=== PATIENT | female | born 1965 | race Two or more races ===

== ENCOUNTER 2024-09-03 14:01 | Emergency (ER) | payer OTHER, SELFPAY ==
[2024-09-03 14:06] VITALS: BMI 21.1
[2024-09-03 14:39] VITALS: BP 126/87; PULSE 85; RESP 20; TEMP 37.1; O2SAT 97
--- NOTE | 2024-09-03 14:51 | XR_ITS ---
Examination: CT abdomen and pelvis without contrast. Coronal 3-D reconstructions. Sagittal 2-D reconstructions. Date and time of exam: September 03, 2024 1502 hrs. Indications: Abdominal pain 18 days getting worse CTDI: vol (mGy): 01/20/2022 DLP: (mGycm): 287 Technique: Axial images of the abdomen have been obtained, 3 mm slice thickness Intravenous contrast material has not been administered. Low dose protocols were performed. One or more of the following dose reduction techniques were used; automated exposure control, adjustment of the mA and/or KV according to patient size, use of iterative reconstruction technique. Findings: No focal liver or splenic lesions Contracted gallbladder No pancreatic mass or peripancreatic edema No renal or ureteral calculi, no hydronephrosis Aorta normal size Normal appendix No bowel obstruction No diverticulitis Marked enlargement fundus of uterus with calcified 6.4 cm uterine area of likely fibroid degeneration Urinary bladder intact Advanced degenerative disc disease L5-S1 Impression: No renal or ureteral calculi, no hydronephrosis Normal appendix No bowel obstruction Marked enlargement fundus of uterus with large calcified uterine fundal mass, recommend pelvic sonography follow-up
--- NOTE | 2024-09-03 14:51 | PD.EDRME ---
Rapid Medical Screening Exam RME Arrival date/time: 09/03/24 14:01 59-year-old female presents emergency department complains of abdominal pain Chief Complaint: Abdominal Pain Vital signs: Vital Signs Temperature 98.8 F 09/03/24 14:39 Pulse Rate 85 09/03/24 14:39 Respiratory Rate 20 09/03/24 14:39 Blood Pressure 126/87 H 09/03/24 14:39 Pulse Oximetry (%) 97 09/03/24 14:39 Oxygen Delivery Method Room Air 09/03/24 14:39
[2024-09-03 15:32] LABS: Basophils % (Auto) 1 % (0-2.5); Eosinophils % (Auto) 0 % (0-10); Hematocrit 42.4 % (36.0-46.0); Immature Granulocytes % (Auto) 0 % (0-0); Lymphocytes % (Auto) 41 % (10-50); Mean Corpuscular Hemoglobin 28.9 pg (25.0-35.0); Mean Corpuscular Volume 88 fL (80-100); Monocytes # (Auto) 0.4 Thou/mm3 (0.0-0.8); Monocytes % (Auto) 8 % (0-12); Neutrophils # (Auto) 2.4 Thou/mm3 (1.8-7.7); Neutrophils % (Auto) 50 % (37-80); Nucleated Red Blood Cell % 0 /100 WBC (0); Platelet Count 260 Thou/mm3 (140-440); RDW Standard Deviation 40.1 fL (36.4-46.3); Red Blood Count 4.84 Miln/mm3 (4.00-5.20); White Blood Count 4.8 Thou/mm3 (3.6-11.0)
[2024-09-03 15:36] LABS: Collection Type, Urine Clean Catch; Squamous Epithelial Cell,Urine 0 /hpf (0-5)
[2024-09-03 15:40] LABS: Bilirubin,Urine Negative (Negative); Blood,Urine Negative (Negative); Clarity,Urine Clear (Clear/Hazy); Color,Urine Colorless (Lt Yel-Yel); Culture Indicated,Urine Not Indicated; Glucose, Urine Negative (Negative); Ketones,Urine Negative (Negative); Leukocyte Esterase,Urine Negative (Negative); Nitrite,Urine Negative (Negative); Protein,Urine Negative (Neg - Trace); RBC,Urine 2 /hpf (0-3); Specific Gravity,Urine 1.006 (1.001-1.035); Urobilinogen,Urine Negative mg/dL (0.0-1.0); WBC,Urine 1 /hpf (0-5)
[2024-09-03 15:54] LABS: Alanine Aminotransferase 14 U/L (10-49); Albumin, Serum 4.7 gm/dL (3.4-4.8); Albumin/Globulin Ratio 1.7 (1.2-2.2); Alkaline Phosphatase 112 U/L (46-116); Anion Gap 8 (7-16); Aspartate Amino Transferase 20 U/L (0-34); BUN/Creatinine Ratio 11 Ratio (12-20); Bilirubin,Total 0.5 mg/dL (0.3-1.2); Blood Urea Nitrogen 10 mg/dL (9-23); Calcium 9.4 mg/dL (8.3-10.6); Calcium (Corrected) 9.4 mg/dL (8.5-10.1); Carbon Dioxide 28.1 mMol/L (20.0-31.0); Chloride 98 mMol/L (98-107); Creatinine (Component) 0.9 mg/dL (0.6-1.3); Estimated Creatinine Clearance 63.5 mL/min (>60); Globulin 2.8 gm/dL (2.3-3.5); Glucose 98 mg/dL (74-106); Lipase 39 U/L (12-53); Osmolality,Calculated 267 (275-295); Potassium 4.2 mMol/L (3.4-5.1); Sodium 134 mMol/L (136-145); Total Protein 7.5 gm/dL (5.7-8.2); eGFR > 60 See Note
--- NOTE | 2024-09-03 16:47 | XR_ITS ---
Examination: Pelvic ultrasound, transabdominal, complete Technique: Transabdominal ultrasound of the pelvis performed using grayscale imaging Date and time of exam: September 03, 2024 1712 hrs. Indications: Generalized abdominal pelvic pain beginning 2 weeks ago, enlarged uterus on CT scan pelvis today Findings: Uterus 9.98 x 11.3 x 7.1 cm Uterine area of fibroid degeneration 6.9 x 5.1 x 5.9 cm with calcifications Ovaries are not well visualized Impression: Large area of uterine fibroid degeneration 6.9 x 5.1 x 5.9 cm
[2024-09-03 21:29] VITALS: BP 137/90; PULSE 78; RESP 18; TEMP 36.7; O2SAT 98
[2024-09-04 01:58] VITALS: BP 162/99; PULSE 71; RESP 18; TEMP 36.7; O2SAT 99
--- NOTE | 2024-09-04 02:12 | PD.EDABDPN ---
ED Abdominal Pain RME/HPI General Chief Complaint: Abdominal Pain Stated complaint: SICK 18 DAYS, STOMACH WORSE Time seen by provider: 09/04/24 02:13 Arrival date/time: 09/03/24 14:01 Limitations: no limitations RME / HPI RME / HPI narrative: 09/03/24 14:01 59-year-old female presents emergency department complains of abdominal pain ------- Dr. [facility] Main ED Evaluation: 59yo female with a history of IBS presents to the ED for a chief complaint of generalized abdominal discomfort. She reports associated nausea and diarrhea, reporting she has episodes of abdominal cramping with the diarrhea. She states she has not ate since this morning due to feeling generally unwell. She denies any vomiting, fever, chills or any other associated symptoms. Related Data Previous Rx's ?Medication ?Instructions ?Recorded albuterol sulfate 90 mcg/actuation 2 puff inhalation Q6H PRN cough 5 09/04/24 aerosol inhaler days #8.5 grams azithromycin 250 mg tablet 250 mg PO QDAY 4 days #4 tabs 09/04/24 (Zithromax) Allergies Allergy/AdvReac Type Severity Reaction Status Date / Time sulfamethoxazole (From Allergy Mild Nausea Verified 09/03/24 14:05 Bactrim) trimethoprim (From Bactrim) Allergy Mild Nausea Verified 09/03/24 14:05 amantadine Allergy Dizziness Verified 09/03/24 14:05 Bleach (Sodium Hypochlorite) Allergy Verified 09/03/24 14:05 mold Allergy Verified 09/03/24 14:05 perfume Allergy Verified 09/03/24 14:05 Review of Systems Review of Systems Systems Reviewed: All systems reviewed, normal except as documented Past Medical History Social History SMOKING STATUS: Never smoker ED Exam General Limitations: Present no limitations General appearance: Present alert, in no apparent distress and other (appears fatigued) Head Head exam: Present atraumatic Eye Eye exam: Present normal appearance, PERRL and EOMI ENT ENT exam: Present normal exam, normal oropharynx and mucous membranes dry Neck Neck exam: Present normal inspection, full ROM and trachea midline Chest Chest inspection: Present normal inspection and symmetric chest wall rise Respiratory Respiratory exam: Present normal lung sounds bilaterally Cardiovascular Cardiovascular exam: Present regular rate, normal rhythm and normal heart sounds Abdominal Exam Abdominal exam: Present soft and normal bowel sounds Extremities Exam Extremities exam: Present normal inspection and full ROM Back Exam Back exam: Present normal inspection and full ROM Neurological Exam Neurological exam: Present alert, oriented X3 and CN II-XII intact Psychiatric Psychiatric exam: Present normal affect and normal mood Skin Skin exam: Present warm, dry, intact and normal color Course Quality Measures none Orders Category Date Time Status Bedside COVID-19 Antigen Test NOW Care 09/03/24 14:51 Completed Bedside Influenza A&B Antigen Test NOW Care 09/03/24 14:51 Completed IV [Insert IV] NOW Care 09/04/24 02:[address] abdomen pelvis wo con Stat Exams 09/03/24 14:51 Completed US pelvic complete Stat Exams 09/03/24 16:47 Completed CBC Stat Lab 09/03/24 15:20 Completed Comprehensive Metabolic Panel Stat Lab 09/03/24 15:20 Completed Lipase Stat Lab 09/03/24 15:20 Completed UA, C/S IF [Urinalysis, C/S if Indicated] Stat Lab 09/03/24 15:33 Completed Azithromycin Inj [Zithromax Inj] 500 mg Med 09/04/24 02:18 Discontinued Sodium Chloride 0.9% 250 ml [Ns] 250 ml IV X1 Vital Signs Vital signs: Vital Signs Temperature 98.8 F 09/03/24 14:39 Pulse Rate 85 09/03/24 14:39 Respiratory Rate 20 09/03/24 14:39 Blood Pressure 126/87 H 09/03/24 14:39 Pulse Oximetry (%) 97 09/03/24 14:39 Oxygen Delivery Method Room Air 09/03/24 14:39 Pulse ox is 97% on room air, which is normal according to my interpretation. Abdominal Pain MDM Patient data External records reviewed:: [facility] previous records (Per chart review, patient has no previous ED visits or admissions to this facility.) Clinical information provided by:: patient Social determinants that could affect healthcare access:: none Patient has the following chronic illnesses:: none How is presenting disease/condition affected by chronic disease/condition?: no chronic disease Evaluation data The following diagnostics were reviewed and interpreted by me:: lab results and radiology exam(s) Lab and/or radiology exams considered but not ordered:: none Interpretation Summary: Bedside COVID is positive, Bedside Influenza is negative, CBC is normal, CMP is normal, Lipase is normal, UA is unremarkable, according to my interpretation. --------- [facility] Report Signed Patient: MADAI JIMENEZ [facility]. Record#: [id number] Birthdate: 1965 Age/Sex: 59 / F Location: [facility] Attending Dr: Ordering Physician: Noel Juan NP, NP Date of Service: 09/03/24 Procedure(s): US pelvic complete Accession Number(s): [id number] cc: Noel Juan NP, NP; Franco Pan MD; NO PRIMARY/FAMILY,PHYSICIAN~ Examination: Pelvic ultrasound, transabdominal, complete Technique: Transabdominal ultrasound of the pelvis performed using grayscale imaging Date and time of exam: September 03, 2024 1712 hrs. Indications: Generalized abdominal pelvic pain beginning 2 weeks ago, enlarged uterus on CT scan pelvis today Findings: Uterus 9.98 x 11.3 x 7.1 cm Uterine area of fibroid degeneration 6.9 x 5.1 x 5.9 cm with calcifications Ovaries are not well visualized Impression: Large area of uterine fibroid degeneration 6.9 x 5.1 x 5.9 cm Dictated By: Franco Pan MD Signed By: <Electronically signed by Franco Pan MD in [place]> 09/03/24 182 [facility] Report Signed Patient: MADAI JIMENEZ. Record#: [id number] Birthdate: 1965 Age/Sex: 59 / F Location: [facility] Attending Dr: Ordering Physician: Noel Juan NP, NP Date of Service: 09/03/24 Procedure(s): CT abdomen pelvis wo con Accession Number(s): [id number] cc: Noel Juan NP, NP; Franco Pan MD; NO PRIMARY/FAMILY,PHYSICIAN~ Examination: CT abdomen and pelvis without contrast. Coronal 3-D reconstructions. Sagittal 2-D reconstructions. Date and time of exam: September 03, 2024 1502 hrs. Indications: Abdominal pain 18 days getting worse CTDI: vol (mGy): 01/20/2022 DLP: (mGycm): 287 Technique: Axial images of the abdomen have been obtained, 3 mm slice thickness Intravenous contrast material has not been administered. Low dose protocols were performed. One or more of the following dose reduction techniques were used; automated exposure control, adjustment of the mA and/or KV according to patient size, use of iterative reconstruction technique. Findings: No focal liver or splenic lesions Contracted gallbladder No pancreatic mass or peripancreatic edema No renal or ureteral calculi, no hydronephrosis Aorta normal size Normal appendix No bowel obstruction No diverticulitis Marked enlargement fundus of uterus with calcified 6.4 cm uterine area of likely fibroid degeneration Urinary bladder intact Advanced degenerative disc disease L5-S1 Impression: No renal or ureteral calculi, no hydronephrosis Normal appendix No bowel obstruction Marked enlargement fundus of uterus with large calcified uterine fundal mass, recommend pelvic sonography follow-up Dictated By: Franco Pan MD Signed By: <Electronically signed by Franco Pan MD in [place]> 09/03/24 1624 Medications / Prescriptions Medications or Prescriptions considered but not ordered:: none Medication administrations:: Medication Administration History Discontinued Medications Azithromycin 500 mg/ Sodium (Chloride) 250 mls @ 250 mls/hr IV X1 ONE Stop: 09/04/24 03:17 Last Admin: 09/04/24 02:53 Dose: 250 mls/hr Documented By: LB see above Consultations Consultation(s) initiated? (list below): No Diagnosis Differential diagnosis abdominal pain: other (COVID, Influenza, UTI, dehydration, electrolyte abnormality) Most likely diagnosis given after review of the tests above:: COVID, dehydration, diarrhea Admission Indicated Admission indicated?: not indicated Admission Request Was there a request for admission?: No Disposition Plan Disposition Plan: Discharge Discharge Attestation Discharge Attestation: The patient and all family members were given an opportunity to ask questions and understood the discharge instructions. Discharge instructions specifically effects, indications for sooner follow up or return to the emergency department, and the expected course of current diagnosis. Patient condition: Stable Discharge Plan Plan Patient Disposition: HOME (Self Care) Patient condition on transfer: Stable Prescriptions/Referrals Prescriptions/Med Rec: New albuterol sulfate 90 mcg/actuation HFA aerosol inhaler 2 puff inhalation Q6H PRN (Reason: cough) 5 Days Qty: 8.5 0RF Rx Instructions: administer with spacer azithromycin [Zithromax] 250 mg tablet 250 mg PO QDAY 4 Days Qty: 4 0RF Rx Instructions: start on day 2 of therapy Referrals: No Primary/Family,Physician [Primary Care Provider] - In 1 week Problem List Clinical Impression: Dehydration, Diarrhea Patient/Caregiver Discharge Instructions Diet Instructions: Stay hydrated with Pedialyte and Gatorade. Additional Instructions: Today we will treat you for possible bacterial infection on top of your COVID-19 that she has had for over 3 weeks. Please use the inhaler for cough for the next 2 to 3 days as directed. Please follow-up with your primary care when you get back home. Return to emergency department for worsening symptoms, or any other concerns Print Language: [place] Stand Alone Forms: [facility] Info., Patient Portal Info Letter
--- NOTE | 2024-09-04 02:31 | PC.LAC ---
Initial contact with pt.
[2024-09-04] MEDS: AZITHROMYCIN INJ 500 MG in SODIUM CHLORIDE 0.9% 250 ML 250 ML 250 MG IV (02:53)
[2024-09-04 03:04] VITALS: BP 150/96; PULSE 66; RESP 20; O2SAT 100
[2024-09-04 04:30] VITALS: BP 147/96; PULSE 72; RESP 18; TEMP 36.8; O2SAT 100
== END 2024-09-04 04:57 | disposition home or self-care (01) ==
PROVIDERS: Nurse Practitioner Primary Care; Emergency Provider Emergency Medicine
DX: E86.0 Dehydration (principal); U07.1 COVID-19; K58.0 Irritable bowel syndrome with diarrhea
CPT/HCPCS: 36415; 74176; 76856; 80053; 81001; 83690; 85025; 87400; 87811; 99284; J0456; J7050